=== PATIENT | male | born 1995 | race American Indian/Alaskan Native ===

== ENCOUNTER 2021-02-08 19:14 | Emergency (ER) | payer SELFPAY ==
[2021-02-08 21:24] VITALS: BP 108/62
--- NOTE | 2021-02-08 21:53 | Emergency Department Report ---
ED General Adult HPI - General Chief complaint: Sore Throat Stated complaint: THROAT PAIN/HEADACHE Time Seen by Provider: 02/08/21 21:35 Source: patient Mode of arrival: Ambulatory Limitations: No Limitations - History of Present Illness Initial comments: 25-year-old -[place] male patient presents with complaints of sore throat x3 days. Pain worsens with swallowing per patient. He denies trying any OTC medications for his symptoms. He denies any cough, shortness of breath, rash, chest pain, or fever/chills/sweats. No loss of taste or smell or recent known sick contacts per patient. He denies any past medical history. - Related Data Previous Rx's Medication Instructions Recorded Last Taken Type Amoxicillin [Trimox CAP] 500 mg PO BID 10 Days #20 capsule 02/08/21 Unknown Rx Ibuprofen [Motrin 800 MG tab] 800 mg PO Q8HR PRN #20 tablet 02/08/21 Unknown Rx Allergies Allergy/AdvReac Type Severity Reaction Status Date / Time No Known Allergies Allergy Verified 02/08/21 21:25 ED Review of Systems ROS: Stated complaint: THROAT PAIN/HEADACHE Other details as noted in HPI Constitutional: denies: chills, diaphoresis, fever, malaise ENT: throat pain. denies: ear pain Respiratory: denies: cough, shortness of breath Cardiovascular: denies: chest pain Skin: denies: change in color Hematological/Lymphatic: swollen glands ED Past Medical Hx - Past Medical History Previous Medical History?: No - Surgical History Past Surgical History?: Yes Additional Surgical History: abscess removal left armpit - Social History Smoking Status: Never Smoker Substance Use Type: None - Medications Home Medications: Home Medications Medication Instructions Recorded Confirmed Last Taken Type Amoxicillin [Trimox CAP] 500 mg PO BID 10 Days #20 capsule 02/08/21 Unknown Rx Ibuprofen [Motrin 800 MG tab] 800 mg PO Q8HR PRN #20 tablet 02/08/21 Unknown Rx ED Physical Exam - General Limitations: No Limitations General appearance: alert, in no apparent distress - Head Head exam: Present: atraumatic, normocephalic - Eye Eye exam: Present: normal appearance - Expanded ENT Exam Expanded Mouth exam: Present: tongue normal. Absent: drooling, trismus, muffled voice Throat exam: Positive: tonsillar erythema, tonsillar exudate, other (Uvula is midline). Negative: tonsillomegaly, R peritonsillar mass, L peritonsillar mass - Neck Neck exam: Present: lymphadenopathy (Mild right submandibular tender lymphadenopathy noted) - Respiratory Respiratory exam: Present: normal lung sounds bilaterally. Absent: respiratory distress - Cardiovascular Cardiovascular Exam: Present: regular rate - Neurological Exam Neurological exam: Present: alert, oriented X3, normal gait - Psychiatric Psychiatric exam: Present: normal affect, normal mood - Skin Skin exam: Present: warm, dry, intact, normal color. Absent: rash ED Course Vital Signs 02/08/21 21:21 Temperature 98.2 F Pulse Rate 70 Respiratory 18 Rate Blood Pressure 108/62 [Left] O2 Sat by Pulse 99 Oximetry ED Medical Decision Making - Medical Decision Making 25-year-old -[place] male patient presents with complaints of sore throat x3 days. Pain worsens with swallowing per patient. He denies trying any OTC medications for his symptoms. He denies any cough, shortness of breath, rash, chest pain, or fever/chills/sweats. No loss of taste or smell or recent known sick contacts per patient. He denies any past medical history. Tonsillar exudate noted bilaterally on exam with right submandibular lymphadenopathy. Will treat empirically for strep pharyngitis with Amoxil. Recommend patient follows up with his primary care doctor in 3 to 5 days. He is well-appearing, his vitals are within normal limits, he is stable for discharge home. Critical care attestation.: If time is entered above; I have spent that time in minutes in the direct care of this critically ill patient, excluding procedure time. ED Disposition Clinical Impression: Acute pharyngitis Disposition: 01 HOME / SELF CARE / HOMELESS Is pt being admited?: No Condition: Stable Instructions: Strep Throat, Adult, [id number] Prescriptions: Ibuprofen [Motrin 800 MG tab] 800 mg PO Q8HR PRN #20 tablet PRN Reason: pain Amoxicillin [Trimox CAP] 500 mg PO BID 10 Days #20 capsule Referrals: [facility] [Provider Group] - 3-5 Days Forms: Work/School Release Form(ED)
[2021-02-08] MEDS ORDERED: IBUPROFEN 800 MG TAB PO STA (22:03)
== END 2021-02-08 23:05 | disposition home or self-care (01) ==
LOC: ED 19:14
DX: J02.9 Acute pharyngitis, unspecified (principal); Z98.890 Other specified postprocedural states
CPT/HCPCS: 99281